=== PATIENT | male | born 1955 | race African-American/Black ===

== ENCOUNTER 2016-08-11 08:52 | Emergency (ER) | payer BC ==
[~2016-08-11] VITALS: Ht 172.7 cm; Wt 76.7 kg
[2016-08-11 10:44] LABS: EOSINOPHIL (%) 0 % (0-5); HEMATOCRIT 37.2 % (38.0-50.0); IMMATURE GRANULOCYTE (%) 0.2 % (0.0-0.7); LYMPHOCYTE COUNT 2.5 K/uL (1.0-2.8); MCH 31.3 PG (29.0-34.0); MCHC 35.5 G/DL (30.0-36.0); MCV 88.2 FL (86-99); MEAN PLAT.VOLUME 10.3 uM^3 (9.0-12.4); MONOCYTE (%) 7.3 % (3-12); MONOCYTE COUNT 0.6 K/uL (0-0.8); NEUTROPHIL (%) 61.9 % (45-76); NEUTROPHIL COUNT 5.1 K/uL (1.8-6.4); PLATELET COUNT 335 K/uL (156-360); RBC DIS.WIDTH-CV 13.2 % (11.8-14.6); RBC DIS.WIDTH-SD 42.1 % (39-53); RED BLOOD COUNT 4.22 M/uL (4.00-5.50); WHITE BLOOD COUNT 8.3 K/uL (4.1-10.2)
[2016-08-11 10:48] LABS: CHLORIDE 98 mEq/L (99-109); POTASSIUM 3.3 mEq/L (3.7-5.4); SODIUM 133 mEq/L (136-147)
[2016-08-11 10:50] LABS: GLUCOSE 109 mg/dL (70-99)
[2016-08-11 10:52] LABS: ANION GAP 10 MEQ/L (2-14); TOTAL BILIRUBIN 0.7 mg/dL (0.0-1.0)
[2016-08-11 10:54] LABS: ALKALINE PHOSPHATASE 54 IU/L (3-129); GFR ESTIMATE (CALCULATED) > 59 mL/min/
[2016-08-11 10:55] LABS: UREA NITROGEN (BUN) 5 mg/dL (9-23)
[2016-08-11 10:57] LABS: LIPASE 31 U/L (1.0-51.0)
[2016-08-11] MEDS ORDERED: ZITHROMAX Z-PA250 MG PO (13:11)
[2016-08-11] MEDS ORDERED: BENTYL20 MG PO (13:11)
[2016-08-11 13:39] VITALS: BP 157/91
== END 2016-08-11 13:54 | disposition home or self-care (01) ==
LOC: EME 08:52
PROVIDERS: Emergency Medicine
DX: J40 Bronchitis, not specified as acute or chronic (principal); K21.9 Gastro-esophageal reflux disease without esophagitis; I10 Essential (primary) hypertension; E78.5 Hyperlipidemia, unspecified
CPT/HCPCS: 71020; 80053; 83690; 85025; 99281; 99284